=== PATIENT | male | born 1955 | race Caucasian/White ===

== ENCOUNTER 2019-08-28 11:53 | Emergency (ER) | payer OTHER, BC ==
[2019-08-28] MEDS ORDERED: Acetaminophen/oxyCODONE 325-5 MG Tab PO ONE (12:16)
--- NOTE | 2019-08-28 12:47 | CR ---
[id number] RAD/RAD Hand Right 3V EXAM: 3 VIEWS RIGHT HAND. INDICATION: TABLE SAW ACCIDENT COMPARISON: None. DISCUSSION: Multi fragmentary displaced fracture involving the distal 1st phalanx with associated soft tissue edema. There are multiple bony fragments with displacement. The fracture line extends to the interphalangeal joint. There also may be a nondisplaced fracture involving the distal aspect of the proximal 1st phalanx. There is significant associated soft tissue defect. Nondisplaced fracture involving the distal tuft of the 2nd digit. Again there is soft tissue defect. No other fractures are identified. IMPRESSION: 1. Multi fragmentary fracture involving the distal 1st phalanx. Nondisplaced fractures involving the distal aspect of the proximal 1st phalanx and the distal tuft of the 2nd phalanx. There are associated soft tissue defects. Anselmo Geiger DO 08/28/19 1246 Thank you for allowing us to participate in the care of your patient.
[2019-08-28] MEDS ORDERED: cefTRIAXone 1 GM Vial IM ONE (12:52)
[2019-08-28] MEDS ORDERED: cefTRIAXone 1 GM, Lidocaine 1% 2.1 ML IM ONE ×2 (12:55)
--- NOTE | 2019-08-28 13:00 | EDM.PDOC ---
ED HPI GENERAL MEDICAL PROBLEM - General Chief Complaint: Laceration Time Seen by Provider: 08/28/19 12:00 - History of Present Illness INITIAL COMMENTS - FREE TEXT/NARRATIVE: Pt presents with hand laceration from table saw. PT with laceration to right thumb, right pointer finger and flap middle knuckle. - Related Data Allergies Allergy/AdvReac Type Severity Reaction Status Date / Time No Known Allergies Allergy Verified 08/28/19 12:48 Home Meds: Home Meds Aspirin [Halfprin] 1 tab PO DAILY 10/30/14 [History] Lisinopril [Prinivil] 1 tab PO DAILY 10/30/14 [History] atorvaSTATin [Lipitor] 0.5 tab PO DAILY 10/30/14 [History] metFORMIN HCl [Metformin HCl] 1,000 mg BID 08/28/19 [History] ED ROS GENERAL - Review of Systems Review Of Systems: See Below Constitutional: Reports: No Symptoms HEENT: Reports: No Symptoms Respiratory: Reports: No Symptoms Cardiovascular: Reports: No Symptoms Endocrine: Reports: No Symptoms GI/Abdominal: Reports: No Symptoms : Reports: No Symptoms Musculoskeletal: Reports: Other (laceration to right thumb, pointer, and middle finger. ) Skin: Reports: Other (lacerations) ED EXAM, SKIN/RASH Exam: See Below Text/Narrative:: PT with laceration to right thumb around pip joint 9 cm long, right pointer finger 6 cm long and flap to right middle finger. Pt with movement, x ray noted multi fragment fracture distal andre 1st phalenx, fracture distal of the proximal 1 st phalanx, distal tuft 2nd phalanx. Discussed with Dr Bai [facility], will send to his office for evaluation and continued treatment, keep pt NPO 1 G rocephin im, tetanus is upd in 2013. Exam Limited By: No Limitations General Appearance: Alert, WD/WN, No Apparent Distress Eye Exam: Bilateral Eye: PERRL Ears: Normal External Exam Nose: Normal Inspection Throat/Mouth: Normal Inspection Head: Atraumatic, Normocephalic Neck: Normal Inspection, Supple, Non-Tender Respiratory/Chest: No Respiratory Distress Cardiovascular: Normal Peripheral Pulses Extremities: Other (see note ) Course - Orders/Labs/Meds Meds: Medications Discontinued Medications Generic Name Dose Route Start Last Admin Trade Name Freq PRN Reason Stop Dose Admin Ceftriaxone Sodium 1 gm 08/28/19 12:52 Rocephin IM 08/28/19 12:53 ONETIME ONE Oxycodone/Acetaminophen 2 tab 08/28/19 12:16 08/28/19 12:44 Percocet 325-5 Mg PO 08/28/19 12:17 2 tab ONETIME ONE Administration Departure - Departure Time of Disposition: 13:06 (Will send to Dr. Bai Hand surgeon for evaluation and treatment. ) Disposition: DC/Tfer to Other 70 Condition: Good Clinical Impression: Hand trauma - Discharge Information Forms: ED Department Discharge, Interfacility Transfer [facility]ATT[facility]A
[2019-08-28 13:32] VITALS: BP 167/97; PULSE 92
== END 2019-08-28 14:50 | disposition other institution (70) ==
LOC: VM.ED 11:53
DX: S62.514A Nondisplaced fracture of proximal phalanx of right thumb, initial encounter for closed fracture (principal); S62.660A Nondisplaced fracture of distal phalanx of right index finger, initial encounter for closed fracture; S61.212A Laceration without foreign body of right middle finger without damage to nail, initial encounter; Z79.82 Long term (current) use of aspirin; Z79.899 Other long term (current) drug therapy; W27.0XXA Contact with workbench tool, initial encounter
CPT/HCPCS: 73130; 96372; 99284; A9270; J0696; J2001

== ENCOUNTER 2019-09-03 06:22 | Emergency (ER) | payer BC, OTHER ==
[2019-09-03 06:53] VITALS: BP 175/84; PULSE 90
--- NOTE | 2019-09-03 07:21 | EDM.PDOC ---
ED HPI GENERAL MEDICAL PROBLEM - General Chief Complaint: Gastrointestinal Problem Stated Complaint: Rectal pressure, constipation Time Seen by Provider: 09/03/19 07:18 - History of Present Illness INITIAL COMMENTS - FREE TEXT/NARRATIVE: Pt presents c/o feeling bloated, feels constipated. Pt as been on pain medication for the last week related to a table saw incident. Treatments MOVIE EDITOR: Reports: Other (see below) Other Treatments MOVIE EDITOR: Senna 4, tablets this morning Rectal pain Pain Score (Numeric/FACES): 7 - Related Data Allergies Allergy/AdvReac Type Severity Reaction Status Date / Time No Known Allergies Allergy Verified 09/03/19 06:53 Home Meds: Home Meds Aspirin [Halfprin] 1 tab PO DAILY 10/30/14 [History] Lisinopril [Prinivil] 1 tab PO DAILY 10/30/14 [History] atorvaSTATin [Lipitor] 0.5 tab PO DAILY 10/30/14 [History] metFORMIN HCl [Metformin HCl] 1,000 mg BID 08/28/19 [History] Insulin Aspart [NovoLOG] 10 units SQ BID 09/03/19 [History] Insulin Glarg,Human.Rec.Analog [Lantus Solostar] 20 units SQ DAILY 09/03/19 [ History] atorvaSTATin Calcium [Atorvastatin Calcium] 20 mg PO DAILY 09/03/19 [History] Past Medical History Cardiovascular History: Reports: High Cholesterol, Hypertension Endocrine/Metabolic History: Reports: Diabetes, Type II - Past Surgical History GI Surgical History: Reports: Appendectomy ED ROS GENERAL - Review of Systems Review Of Systems: See Below Constitutional: Reports: No Symptoms HEENT: Reports: No Symptoms Respiratory: Reports: No Symptoms Cardiovascular: Reports: No Symptoms Endocrine: Reports: No Symptoms GI/Abdominal: Reports: Abdominal Pain : Reports: No Symptoms Musculoskeletal: Reports: Other (bandage to right hand. ) Skin: Reports: No Symptoms Neurological: Reports: No Symptoms Psychiatric: Reports: No Symptoms Hematologic/Lymphatic: Reports: No Symptoms Immunologic: Reports: No Symptoms ED EXAM, GI/ABD - Physical Exam Exam: See Below Text/Narrative:: Pt with large bm in department, abd pain improved, pt feels no pressure at this time has no complaints. Discussed the need for continued stool softener increase daily fiber intake. Exam Limited By: No Limitations General Appearance: Alert, WD/WN, No Apparent Distress Ears: Normal External Exam Nose: Normal Inspection Throat/Mouth: Normal Inspection Head: Atraumatic, Normocephalic Neck: Normal Inspection, Supple, Non-Tender, Full Range of Motion Respiratory/Chest: No Respiratory Distress Cardiovascular: Normal Peripheral Pulses GI/Abdominal Exam: Other (hyperactive bowel sounds abd soft ) Extremities: Other (bandage to right hand related to table saw incident. ) Neurological: Alert, Oriented, CN II-XII Intact, Normal Cognition, Normal Gait, Normal Reflexes, No Motor/Sensory Deficits Psychiatric: Normal Affect, Normal Mood Skin Exam: Warm, Dry, Intact, Normal Color, No Rash Course - Vital Signs Last Recorded V/S: Last Vital Signs Temp 36.7 C 09/03/19 06:30 Pulse 90 09/03/19 06:30 Resp 16 09/03/19 06:30 BP 175/84 H 09/03/19 06:30 Pulse Ox 99 09/03/19 06:30 Departure - Departure Time of Disposition: 07:50 Disposition: Home, Self-Care 01 Condition: Good Clinical Impression: Constipation - Discharge Information Instructions: Constipation, Adult Forms: ED Department Discharge Additional Instructions: continued daily stool softener use. increase daily fiber intake.
--- NOTE | 2019-09-03 07:42 | CR ---
[id number] RAD/RAD Abd Flat and Upright 2V Exam: RAD Abd Flat and Upright 2V Clinical Data: ABDOMINAL PAIN COMPARISON: NO PREVIOUS SIMILAR EXAM IS AVAILABLE FINDINGS: There is a mild ileus Metallic density projects against the right side of the pelvis There is no free air There is no organomegaly or pathologic calcification There are degenerative changes of the spine and hips IMPRESSION: MILD ILEUS Nikita Vazquez MD 09/03/19 0741 Thank you for allowing us to participate in the care of your patient.
== END 2019-09-03 08:00 | disposition home or self-care (01) ==
LOC: VM.ED 06:22
DX: K59.00 Constipation, unspecified (principal); I10 Essential (primary) hypertension; E11.9 Type 2 diabetes mellitus without complications; E78.00 Pure hypercholesterolemia, unspecified; Z79.82 Long term (current) use of aspirin; Z79.4 Long term (current) use of insulin; Z79.899 Other long term (current) drug therapy
CPT/HCPCS: 74019; 99283-25